=== PATIENT | male | born 1975 | race Caucasian/White ===

== ENCOUNTER 2020-06-29 00:54 | Emergency (ER) | payer OTHER ==
[2020-06-29 01:07] VITALS: TEMP 98.2
[2020-06-29] MEDS ORDERED: HYDROmorphone 1 MG/ML 1 ML SYRINGE IVP STA (01:10)
[2020-06-29] MEDS ORDERED: SODIUM CHLORIDE 0.9% 500 ML 500 ML IV STA (01:10)
[2020-06-29 01:35] LABS: Basophils # (A) 0.1 k/uL (0-0.2); Basophils % (A) 1 %; Eosinophils # (A) 0.1 k/uL (0-0.7); Eosinophils % (A) 1 %; HCT 33.8 % (39.0-53.0); HGB 10.8 gm/dL (13.0-17.5); Hypochromasia Moderate; Lymphocytes # (A) 1.7 k/uL (1.0-4.8); Lymphocytes % (A) 20 %; MCH 27.1 pg (25.0-35.0); MCHC 32.1 g/dL (31.0-37.0); MCV 84.6 fL (80.0-100.0); Mean Platelet Volume 7.5; Monocytes # (A) 1.1 k/uL (0-1.0); Monocytes % (A) 13 %; Neutrophils # (A) 5.4 k/uL (1.3-7.7); Neutrophils % (A) 62 %; Platelet Count 878 k/uL (150-450); Poikilocytosis Moderate; RDW 14.6 % (11.5-15.5); WBC 8.7 k/uL (3.8-10.6)
[2020-06-29 01:43] LABS: ALT 30 U/L (4-49); AST 29 U/L (17-59); African American GFR (CKD) >90 (>60 ml/min/1.73 sqM); Albumin 3.1 g/dL (3.5-5.0); Alkaline Phosphatase 55 U/L (38-126); Amylase <30 U/L (30-110); Anion Gap 8 mmol/L; Blood Urea Nitrogen 16 mg/dL (9-20); Calcium 9.2 mg/dL (8.4-10.2); Carbon Dioxide 27 mmol/L (22-30); Chloride 97 mmol/L (98-107); Glucose 125 mg/dL (74-99); Non-African American GFR(CKD) >90 (>60 ml/min/1.73 sqM); Potassium 4.5 mmol/L (3.5-5.1); Sodium 132 mmol/L (137-145); Total Bilirubin 0.3 mg/dL (0.2-1.3); Total Protein 5.6 g/dL (6.3-8.2)
[2020-06-29] MEDS ORDERED: LORazepam 2 MG/ML INJ IV STA ×2 (01:45→02:19)
--- NOTE | 2020-06-29 01:49 | ED ---
Abdominal Pain HPI - General Chief Complaint: Abdominal Pain Stated Complaint: Abdominal Pain Time Seen by Provider: 06/29/20 01:01 Source: patient, EMS Mode of arrival: EMS Limitations: no limitations - History of Present Illness Initial Comments: This patient is a 44-year-old man who presents to be evaluated for abdominal pain and vomiting. The patient relates that he had been admitted to [facility] on June 18 for abdominal pain, and that he was found to have duodenal ulcer with hemorrhage. The patient underwent Billroth II procedure and also had duodenostomy tube placement. The patient was discharged from the hospital approximately 12 hours ago. Patient is having nausea and abdominal pain and was not able take his own pain medication. MD Complaint: abdominal pain -: hour(s) Location: diffuse Radiation: none Severity: severe Quality: aching Consistency: constant Improves With: nothing Worsens With: nothing Associated Symptoms: nausea - Related Data Allergies Allergy/AdvReac Type Severity Reaction Status Date / Time No Known Allergies Allergy Verified 06/29/20 01:07 Review of Systems ROS Statement: Those systems with pertinent positive or pertinent negative responses have been documented in the HPI. ROS Other: All systems not noted in ROS Statement are negative. Constitutional: Denies: fever, chills Respiratory: Denies: cough, dyspnea Cardiovascular: Denies: chest pain, palpitations Gastrointestinal: Reports: abdominal pain, nausea. Denies: vomiting, diarrhea Genitourinary: Denies: dysuria, frequency, hematuria, testicular pain, testicular mass Musculoskeletal: Denies: back pain Skin: Denies: rash Neurological: Denies: headache, weakness, numbness Psychiatric: Reports: anxiety. Denies: depression, auditory hallucinations Past Medical History History of Any Multi-Drug Resistant Organisms: None Reported Additional Past Surgical History / Comment(s): double ulcer repair, hernia repair Past Psychological History: No Psychological Hx Reported Smoking Status: Current every day smoker Past Alcohol Use History: None Reported Past Drug Use History: Heroin General Exam Limitations: no limitations General appearance: alert, anxious Head exam: Present: atraumatic, normocephalic Eye exam: Present: normal appearance. Absent: scleral icterus, conjunctival injection ENT exam: Present: normal oropharynx Neck exam: Present: normal inspection Respiratory exam: Present: normal lung sounds bilaterally. Absent: respiratory distress, wheezes, rales, rhonchi, stridor Cardiovascular Exam: Present: regular rate, normal rhythm, normal heart sounds. Absent: systolic murmur, diastolic murmur, rubs, gallop GI/Abdominal exam: Present: soft, diminished bowel sounds, other (Patient has a midline abdominal incision with sutures that are intact. The incision is clean dry and intact without any abnormal erythema or discharge. There is also a draining tube consistent with the duodenostomy tube. Normal in appearance.). Absent: distended, tenderness, guarding, rebound, rigid, mass, pulsatile mass Extremities exam: Present: normal inspection, normal capillary refill. Absent: pedal edema, calf tenderness Back exam: Present: normal inspection. Absent: CVA tenderness (R), CVA tenderness (L) Neurological exam: Present: alert Skin exam: Present: warm, dry, intact, normal color. Absent: rash Course Vital Signs 06/29/20 00:57 Temperature 98.2 F Pulse Rate 103 H Respiratory 20 Rate Blood Pressure 139/104 O2 Sat by Pulse 99 Oximetry - Reevaluation(s) Reevaluation #1: 06/29/20 02:33 I discussed the case with Dr. Shepherd, who is covering surgical call [facility] and states that the patient best served by being seen by his surgeon back at [facility]. I discussed this with the patient and he does agree to transfer back receiving Hospital. I then phoned [facility], , and spoke with a Dr. Hernandez who accepted transfer of the patient back to their emergency department. Medical Decision Making - Medical Decision Making This patient is a 44-year-old man who presents with abdominal pain and nausea. He also has had vomiting here. The patient recently had Billroth II procedure for bleeding duodenal ulcer. Given the patient's degree of pain he is sent for CAT scan which does reveal bowel obstruction. I discussed the case with Dr. Shepherd, who is covering for surgery [facility] and recommends that the patient have decompression with nasogastric tube and also transfer back to have further care by his primary surgeon. - Lab Data Result diagrams: 06/29/20 01:18 06/29/20 01:18 Lab Results 06/29/20 06/29/20 Range/Units 01:18 01:18 WBC 8.7 (3.8-10.6) k/uL RBC 4.00 L (4.30-5.90) m/uL Hgb 10.8 L (13.0-17.5) gm/dL Hct 33.8 L (39.0-53.0) % MCV 84.6 (80.0-100.0) fL MCH 27.1 (25.0-35.0) pg MCHC 32.1 (31.0-37.0) g/dL RDW 14.6 (11.5-15.5) % Plt Count 878 H (150-450) k/uL Neutrophils % 62 % Lymphocytes % 20 % Monocytes % 13 % Eosinophils % 1 % Basophils % 1 % Neutrophils # 5.4 (1.3-7.7) k/uL Lymphocytes # 1.7 (1.0-4.8) k/uL Monocytes # 1.1 H (0-1.0) k/uL Eosinophils # 0.1 (0-0.7) k/uL Basophils # 0.1 (0-0.2) k/uL Hypochromasia Moderate Poikilocytosis Moderate Sodium 132 L (137-145) mmol/L Potassium 4.5 (3.5-5.1) mmol/L Chloride 97 L (98-107) mmol/L Carbon Dioxide 27 (22-30) mmol/L Anion Gap 8 mmol/L BUN 16 (9-20) mg/dL Creatinine 0.76 (0.66-1.25) mg/dL Est GFR (CKD-EPI)AfAm >90 (>60 ml/min/1.73 sqM) Est GFR (CKD-EPI)NonAf >90 (>60 ml/min/1.73 sqM) Glucose 125 H (74-99) mg/dL Calcium 9.2 (8.4-10.2) mg/dL Total Bilirubin 0.3 (0.2-1.3) mg/dL AST 29 (17-59) U/L ALT 30 (4-49) U/L Alkaline Phosphatase 55 (38-126) U/L Total Protein 5.6 L (6.3-8.2) g/dL Albumin 3.1 L (3.5-5.0) g/dL Amylase <30 L (30-110) U/L Lipase 68 (23-300) U/L Critical Care Time Critical Care Time: Yes (35 minutes) Disposition Clinical Impression: Abdominal pain, Small bowel obstruction Disposition: OTHER INSTITUTION NOT DEFINED Condition: Serious Is patient prescribed a controlled substance at d/c from ED?: No Referrals: None,Stated [Primary Care Provider] - 1-2 days - Out of Hospital Transfer - Req. Specs Out of Hospital Transfer - Requested Specifics: Other Emergency Center
--- NOTE | 2020-06-29 01:58 | CT ---
EXAMINATION TYPE: CT abdomen pelvis wo con DATE OF EXAM: 06/29/2020 COMPARISON: None HISTORY: Abd Pain CT DLP: 556.90 mGycm Automated exposure control for dose reduction was used. Images obtained from the diaphragm to the floor the pelvis with no contrast. Lung bases are clear. There is no pleural effusion. Heart size is normal. There is no pericardial eff usion. Liver and gallbladder appear normal. Bile ducts are not dilated. There is apparent percutaneous bilia ry catheter with T-tube. There is dilated fluid-filled stomach. There are multiple dilated loops of s mall bowel in the mid abdomen. There are multiple fluid levels. Small bowel measures up to 5.5 cm. I see no sign of free air. There is no ascites. Large bowel is mostly empty. Distal small bowel is not dilated. Transition point not identified. Kidneys have normal size. There is no hydronephrosis. There is no evidence of a renal calculus. There is no retroperitoneal adenopathy. There is no inguinal hernia. Bladder distends smoothly. There is m ild free fluid in the pelvis. The bile ducts do not appear dilated. There are skin laura in the mid line abdomen. Lumbar spine is intact. There is no compression fracture. Bony pelvis is intact. IMPRESSION: Markedly dilated mid and proximal small bowel consistent with high-grade mechanical obstruction. Smal l amount of free fluid in the pelvis. No free fluid in the right upper quadrant. T-tube in the right upper quadrant apparently in the common bile duct. No dilated ducts.
[2020-06-29] MEDS ORDERED: ONDANSETRON 4 MG/2 ML VIAL IVP STA (02:14)
[2020-06-29 03:03] VITALS: BP 143/98; PULSE 100; RESP 18
== END 2020-06-29 02:58 | disposition other institution (70) ==
LOC: EC 00:54
DX: K56.609 Unspecified intestinal obstruction, unspecified as to partial versus complete obstruction (principal); F17.200 Nicotine dependence, unspecified, uncomplicated; Z87.19 Personal history of other diseases of the digestive system; Z93.4 Other artificial openings of gastrointestinal tract status; Z90.3 Acquired absence of stomach [part of]
CPT/HCPCS: 36415; 80053; 82150; 83690; 85025; 74176; 99291; 96374; 96375 ×2; 96376; J2060; J2405; J1170

== ENCOUNTER 2020-07-07 11:42 | Emergency (ER) | payer OTHER ==
[2020-07-07 11:49] VITALS: TEMP 97
[2020-07-07] MEDS ORDERED: SODIUM CHLORIDE 0.9% 1,000 ML IV STA (11:58)
[2020-07-07] MEDS ORDERED: HYDROmorphone 1 MG/ML 1 ML SYRINGE IVP STA (11:59)
[2020-07-07] MEDS ORDERED: ONDANSETRON 4 MG/2 ML VIAL IVP STA (11:59)
--- NOTE | 2020-07-07 12:04 | ED ---
Recheck HPI - General Source: patient, EMS, RN notes reviewed, old records reviewed Mode of arrival: EMS Limitations: no limitations <Brenda Jean - Last Filed: 07/07/20 14:11> <Vipin Valdivia - Last Filed: 07/07/20 16:16> - General Chief Complaint: Recheck/Abnormal Lab/Rx Stated Complaint: Post-Op Complications Time Seen by Provider: 07/07/20 11:46 - History of Present Illness Initial Comments: Srinivas is a 44-year-old male with recent history of gastric ulcer repair at [facility] in the beginning of June. Patient reports that he left his initial stay at [facility] he left AMA. He came to our emergency department on June 29 and was found to have a bowel obstruction and was transferred back to [facility]. Patient had a alexander lroth 2 procedure and had duodenostomy tube placed. 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 He was receiving IV dilaudid and reports that after leaving AMA he has had no pain medication. He states that he has not has any concern at this time for bowel obstruction as he did have a bowel movement this morning, he denies dark or tarry stool. He states he is having severe pain and is also going through withdrawals. He denies any recent fevers. Denies any vomiting. He does have an abdominal drain. (Brenda Jean) - Related Data Home Medications Medication Instructions Recorded Confirmed Amoxicillin 500 mg PO BID 07/07/20 07/07/20 Clarithromycin [Biaxin] 500 mg PO Q12H 07/07/20 07/07/20 Pantoprazole [Protonix] 40 mg PO BID 07/07/20 07/07/20 oxyCODONE HCL [Roxicodone] 15 mg PO Q6H PRN 07/07/20 07/07/20 Allergies Allergy/AdvReac Type Severity Reaction Status Date / Time No Known Allergies Allergy Verified 07/07/20 14:08 Review of Systems ROS Other: All systems not noted in ROS Statement are negative. <Brenda Jean - Last Filed: 07/07/20 14:11> ROS Other: All systems not noted in ROS Statement are negative. <Vipin Valdivia - Last Filed: 07/07/20 16:16> ROS Statement: Those systems with pertinent positive or pertinent negative responses have been documented in the HPI. Past Medical History Past Medical History: No Reported History History of Any Multi-Drug Resistant Organisms: None Reported Additional Past Surgical History / Comment(s): double ulcer repair, hernia repair Past Psychological History: No Psychological Hx Reported Smoking Status: Current every day smoker Past Alcohol Use History: None Reported Past Drug Use History: Heroin <Brenda Jean - Last Filed: 07/07/20 14:11> General Exam Limitations: no limitations General appearance: alert, in no apparent distress Head exam: Present: atraumatic, normocephalic, normal inspection Eye exam: Present: normal appearance, PERRL, EOMI. Absent: scleral icterus, conjunctival injection, periorbital swelling ENT exam: Present: normal exam, mucous membranes moist Neck exam: Present: normal inspection. Absent: tenderness, meningismus, lymphadenopathy Respiratory exam: Present: normal lung sounds bilaterally. Absent: respiratory distress, wheezes, rales, rhonchi, stridor Cardiovascular Exam: Present: regular rate, normal rhythm, normal heart sounds. Absent: systolic murmur, diastolic murmur, rubs, gallop, clicks GI/Abdominal exam: Present: soft, tenderness, normal bowel sounds, other (well appearing midline incision site. Indwelling biliary drain, with bile in Jpouch. ). Absent: distended, guarding, rebound, rigid Extremities exam: Present: normal inspection, full ROM, normal capillary refill. Absent: tenderness, pedal edema, joint swelling, calf tenderness Neurological exam: Present: alert, oriented X3, CN II-XII intact Psychiatric exam: Present: normal affect, normal mood Skin exam: Present: warm, dry, intact, normal color. Absent: rash <Brenda Jean - Last Filed: 07/07/20 14:11> - General Exam Comments Initial Comments: 44 year old male, moderate discomfort. (Brenda Jean) Course <Brenda Jean - Last Filed: 07/07/20 14:11> <Vipin Valdivia - Last Filed: 07/07/20 16:16> Vital Signs 07/07/20 07/07/20 11:44 13:13 Temperature 97 F L Pulse Rate 99 96 Respiratory 18 18 Rate Blood Pressure 117/78 124/88 O2 Sat by Pulse 99 98 Oximetry - Reevaluation(s) Reevaluation #1: 07/07/20 14:04 Asians still continued complaining of pain and anxiety. Does exhibit drug- seeking behaviors asking about specific dose of medication. (Brenda Jean) 07/07/20 15:24 Patient earlier reexamined and reevaluated by myself, Dr. Valdivia. Patient states he does have abdominal discomfort however that he states has been persistent since surgery, no worse. Abdomen soft with mild tenderness, more upper abdomen. Patient is requesting discharge. Patient does want to go to a rehab facility. We are attempting to get a hold of [facility] receiving surgery, we are currently paging second time. 07/07/20 16:03 Case was discussed with Dr. Cosme who will contact team that has previously taking care of this patient and call back. 07/07/20 16:13 Case again discussed with Dr. Cosme who states recent hemoglobin was 9.1 so there was not significant drop. She had no further recommendations other than patient following up with Dr. Almanzar. (Vipin Valdivia) Medical Decision Making - Lab Data Result diagrams: 07/07/20 12:09 07/07/20 12:09 - Radiology Data Radiology results: report reviewed <Brenda Jean - Last Filed: 07/07/20 14:11> - Lab Data Result diagrams: 07/07/20 12:09 07/07/20 12:09 - Radiology Data Radiology results: report reviewed (Computed tomography scan abdomen pelvis shows some mild small bowel wall thickening and dilation consistent with ileus or enteritis. Improved compared with old exam. ET tube in good position. No fluid to suggest a leak. Mild free fluid in pelvis improved compared to old exam.), image reviewed (KUB shows nonobstructive pattern.) <Vipin Valdivia - Last Filed: 07/07/20 16:16> - Medical Decision Making 44-year-old male presents response today approximately 3 weeks post biliroth [address] procedure[address] His surgeon is Dr. Vickers. He left AMA yesterday from [facility] hospital after a bowel obstruction diagnosis on 06/29. He states he left to go to a rehab facility for heroin withdrawal. Patient states he is here for concern for withdrawal from pain medication. Patient denies fevers. Pt case transferred to Dr. Valdivia, 2:13pm. (Brenda Jean) - Lab Data Lab Results 07/07/20 07/07/20 07/07/20 Range/Units 12:09 12:09 12:09 WBC 11.2 H (3.8-10.6) k/uL RBC 3.38 L (4.30-5.90) m/uL Hgb 8.7 L D (13.0-17.5) gm/dL Hct 28.2 L (39.0-53.0) % MCV 83.5 (80.0-100.0) fL MCH 25.7 (25.0-35.0) pg MCHC 30.7 L (31.0-37.0) g/dL RDW 15.6 H (11.5-15.5) % Plt Count 694 H (150-450) k/uL Neutrophils % 68 % Lymphocytes % 23 % Monocytes % 5 % Eosinophils % 2 % Basophils % 0 % Neutrophils # 7.7 (1.3-7.7) k/uL Lymphocytes # 2.5 (1.0-4.8) k/uL Monocytes # 0.6 (0-1.0) k/uL Eosinophils # 0.3 (0-0.7) k/uL Basophils # 0.0 (0-0.2) k/uL Hypochromasia Marked Poikilocytosis Marked PT 13.3 H (9.0-12.0) sec INR 1.3 H (<1.2) APTT 29.8 (22.0-30.0) sec Sodium 135 L (137-145) mmol/L Potassium 3.8 (3.5-5.1) mmol/L Chloride 103 (98-107) mmol/L Carbon Dioxide 25 (22-30) mmol/L Anion Gap 7 mmol/L BUN 10 (9-20) mg/dL Creatinine 0.79 (0.66-1.25) mg/dL Est GFR (CKD-EPI)AfAm >90 (>60 ml/min/1.73 sqM) Est GFR (CKD-EPI)NonAf >90 (>60 ml/min/1.73 sqM) Glucose 92 (74-99) mg/dL Calcium 8.2 L (8.4-10.2) mg/dL Total Bilirubin 0.2 (0.2-1.3) mg/dL AST 24 (17-59) U/L ALT 16 (4-49) U/L Alkaline Phosphatase 56 (38-126) U/L Total Protein 5.0 L (6.3-8.2) g/dL Albumin 2.5 L (3.5-5.0) g/dL Amylase <30 L (30-110) U/L Lipase 355 H (23-300) U/L Urine Color Urine Appearance (Clear) Urine pH (5.0-8.0) Ur Specific [place] (1.001-1.035) Urine Protein (Negative) Urine Glucose (UA) (Negative) Urine Ketones (Negative) Urine Blood (Negative) Urine Nitrite (Negative) Urine Bilirubin (Negative) Urine Urobilinogen (<2.0) mg/dL Ur Leukocyte Esterase (Negative) Urine WBC (0-5) /hpf 07/07/20 Range/Units 12:10 WBC (3.8-10.6) k/uL RBC (4.30-5.90) m/uL Hgb (13.0-17.5) gm/dL Hct (39.0-53.0) % MCV (80.0-100.0) fL MCH (25.0-35.0) pg MCHC (31.0-37.0) g/dL RDW (11.5-15.5) % Plt Count (150-450) k/uL Neutrophils % % Lymphocytes % % Monocytes % % Eosinophils % % Basophils % % Neutrophils # (1.3-7.7) k/uL Lymphocytes # (1.0-4.8) k/uL Monocytes # (0-1.0) k/uL Eosinophils # (0-0.7) k/uL Basophils # (0-0.2) k/uL Hypochromasia Poikilocytosis PT (9.0-12.0) sec INR (<1.2) APTT (22.0-30.0) sec Sodium (137-145) mmol/L Potassium (3.5-5.1) mmol/L Chloride (98-107) mmol/L Carbon Dioxide (22-30) mmol/L Anion Gap mmol/L BUN (9-20) mg/dL Creatinine (0.66-1.25) mg/dL Est GFR (CKD-EPI)AfAm (>60 ml/min/1.73 sqM) Est GFR (CKD-EPI)NonAf (>60 ml/min/1.73 sqM) Glucose (74-99) mg/dL Calcium (8.4-10.2) mg/dL Total Bilirubin (0.2-1.3) mg/dL AST (17-59) U/L ALT (4-49) U/L Alkaline Phosphatase (38-126) U/L Total Protein (6.3-8.2) g/dL Albumin (3.5-5.0) g/dL Amylase (30-110) U/L Lipase (23-300) U/L Urine Color Light Yellow Urine Appearance Clear (Clear) Urine pH 6.0 (5.0-8.0) Ur Specific [place] 1.008 (1.001-1.035) Urine Protein Negative (Negative) Urine Glucose (UA) Negative (Negative) Urine Ketones Negative (Negative) Urine Blood Negative (Negative) Urine Nitrite Negative (Negative) Urine Bilirubin Negative (Negative) Urine Urobilinogen <2.0 (<2.0) mg/dL Ur Leukocyte Esterase Negative (Negative) Urine WBC 1 (0-5) /hpf - Radiology Data KUB shows nonobstructive bowel gas pattern. (Brenda Jean) Disposition <Brenda Jean - Last Filed: 07/07/20 14:11> Is patient prescribed a controlled substance at d/c from ED?: No Time of Disposition: 16:15 <Vipin Valdivia - Last Filed: 07/07/20 16:16> Clinical Impression: Abdominal pain Disposition: HOME SELF-CARE Condition: Stable Instructions (If sedation given, give patient instructions): Abdominal Pain (ED) Additional Instructions: Please follow-up with Dr. Almanzar from [facility] in the next day or 2, call tomorrow. Return for increase in pain, vomiting, fevers, worsening or changing symptoms or any other concerns. Please also follow-up to primary care physician in the next day or 2. Referrals: Terri Meng MD [REFERRING] - 1-2 days
[2020-07-07 12:37] LABS: Basophils % (A) 0 %; Eosinophils # (A) 0.3 k/uL (0-0.7); Eosinophils % (A) 2 %; HCT 28.2 % (39.0-53.0); Hypochromasia Marked; Lymphocytes # (A) 2.5 k/uL (1.0-4.8); Lymphocytes % (A) 23 %; MCH 25.7 pg (25.0-35.0); MCHC 30.7 g/dL (31.0-37.0); MCV 83.5 fL (80.0-100.0); Mean Platelet Volume 7.3; Monocytes # (A) 0.6 k/uL (0-1.0); Monocytes % (A) 5 %; Neutrophils # (A) 7.7 k/uL (1.3-7.7); Neutrophils % (A) 68 %; Platelet Count 694 k/uL (150-450); Poikilocytosis Marked; RBC 3.38 m/uL (4.30-5.90); RDW 15.6 % (11.5-15.5); WBC 11.2 k/uL (3.8-10.6)
[2020-07-07 12:40] LABS: ALT 16 U/L (4-49); AST 24 U/L (17-59); African American GFR (CKD) >90 (>60 ml/min/1.73 sqM); Albumin 2.5 g/dL (3.5-5.0); Alkaline Phosphatase 56 U/L (38-126); Amylase <30 U/L (30-110); Anion Gap 7 mmol/L; Blood Urea Nitrogen 10 mg/dL (9-20); Calcium 8.2 mg/dL (8.4-10.2); Carbon Dioxide 25 mmol/L (22-30); Chloride 103 mmol/L (98-107); Glucose 92 mg/dL (74-99); Non-African American GFR(CKD) >90 (>60 ml/min/1.73 sqM); Potassium 3.8 mmol/L (3.5-5.1); Sodium 135 mmol/L (137-145); Total Bilirubin 0.2 mg/dL (0.2-1.3)
[2020-07-07 12:42] LABS: HGB 8.7 gm/dL (13.0-17.5)
[2020-07-07 12:48] LABS: INR 1.3 (<1.2); Partial Thromboplastin Time 29.8 sec (22.0-30.0); Prothrombin Time 13.3 sec (9.0-12.0)
[2020-07-07] MEDS ORDERED: LORazepam 2 MG/ML INJ IV STA (13:03)
--- NOTE | 2020-07-07 13:04 | XR ---
EXAMINATION TYPE: XR KUB DATE OF EXAM: 07/07/2020 COMPARISON: NONE HISTORY: Pain TECHNIQUE: Single supine KUB image of the abdomen is obtained FINDINGS: Small bowel demonstrates no evidence for dilatation or air fluid levels. Gas and fecal material is seen in non-distended colon. No convincing evidence for pneumoperitoneum. Catheter device overlies the right upper quadrant. No unusual calcifications. The lung bases are clear. The osseous structures are intact. IMPRESSION: 1. Overall nonobstructive bowel gas pattern.
[2020-07-07 13:12] LABS: WBC,Urine 1 /hpf (0-5)
[2020-07-07 13:28] LABS: Appearance,Urine Clear (Clear); Bilirubin,Urine Negative (Negative); Blood,Urine Negative (Negative); Color,Urine Light Yellow; Glucose,Urine (UA) Negative (Negative); Ketones,Urine Negative (Negative); Leukocyte Esterase,Urine Negative (Negative); Nitrite,Urine Negative (Negative); Protein,Urine Negative (Negative); Specific Gravity,Urine 1.008 (1.001-1.035); Urobilinogen,Urine <2.0 mg/dL (<2.0)
[2020-07-07] MEDS ORDERED: SODIUM CHLORIDE 0.9% 1,000 ML IV ONE (13:34)
--- NOTE | 2020-07-07 14:21 | CT ---
EXAMINATION TYPE: CT abdomen pelvis w con DATE OF EXAM: 07/07/2020 COMPARISON: 06/29/2020 HISTORY: Post op pain, complications CT DLP: 602.5 mGycm Automated exposure control for dose reduction was used. CONTRAST: Performed with IV Contrast, patient injected with 100 ml mL of Isovue 300. Images obtained from the diaphragm to the floor the pelvis with IV contrast. FINDINGS: There is some mild interstitial infiltrate and atelectasis left posterior lung base. Heart appears no rmal. There is no pleural effusion. There are clips at the gastroesophageal junction. Stomach is inta ct. Spleen is intact. There is no pancreatic mass. There is T-tube in the common bile duct. The bile ducts are not dilated. There is no adrenal mass. Kidneys show satisfactory contrast opacification. Th ere is no hydronephrosis. Delayed images show normal excretion. There is no retroperitoneal adenopath y. Ureters are not dilated. Bladder distends smoothly. There is no inguinal hernia. There are few dis tended loops of small bowel in the mid abdomen that measure up to 3.2 cm. There is mild small bowel w all thickening. There is no ascites. There is no mesenteric edema. There is small amount of free fluid in the pelvis. Lumbar vertebra have normal alignment. Disc spaces are fairly normal. There is no compression fractu re. Bony pelvis is intact. Hip joints appear normal. IMPRESSION: There is some mild small bowel wall thickening and mild dilation consistent with ileus and mild enter itis. There is improvement compared to old exam with significant decreased in the dilation of the sma ll bowel. T-tube in good position. No fluid around the right upper quadrant to suggest a bile leak. Mild free f luid in the pelvis is improved compared to old exam.
[2020-07-07] MEDS ORDERED: LORazepam 1 MG TAB PO STA (16:19)
[2020-07-07 16:24] VITALS: BP 125/96; PULSE 97; RESP 16
== END 2020-07-07 16:30 | disposition home or self-care (01) ==
LOC: EC 11:42
DX: G89.18 Other acute postprocedural pain (principal); R10.9 Unspecified abdominal pain; K25.9 Gastric ulcer, unspecified as acute or chronic, without hemorrhage or perforation; F17.200 Nicotine dependence, unspecified, uncomplicated; Z90.3 Acquired absence of stomach [part of]; Z93.4 Other artificial openings of gastrointestinal tract status; Z79.899 Other long term (current) drug therapy
CPT/HCPCS: 36415; 80053; 82150; 83690; 85025; 85610; 85730; 81003; 74018; 74177; 99284; 96374; 96375 ×2; 96361 ×2; J2060; J2405; J1170; Q9967

== ENCOUNTER 2020-07-08 14:56 | Emergency (ER) | payer OTHER ==
--- NOTE | 2020-07-08 15:06 | ED ---
General Adult HPI - General Chief complaint: Abdominal Pain Stated complaint: detox Time Seen by Provider: 07/08/20 15:05 Source: patient, EMS Mode of arrival: EMS Limitations: no limitations - History of Present Illness Initial comments: Patient presents the ED by ambulance complaining of having continued abdominal pain at the site of a surgical drain. Patient also states that he has been having heroin withdrawal symptoms, and he states that in particular, he has felt very anxious. Patient was seen in the ED for these symptoms yesterday (please see note from yesterday's visit), and he had lab work and CT imaging done during his visit yesterday. Patient reportedly left AMA from the [facility] 2 days ago after having a Billroth II procedure performed there. Patient states that his pain continues, and so he has returned to the ED. Patient is requesting narcotic pain medication and medication for his anxiety. Patient denies trauma or injury, fever or chills, headache, chest pain, dyspnea, cough or cold symptoms, dizziness, neck pain, nausea or vomiting, diarrhea or constipation, bloody or melanotic stool, dysuria/hematuria/urinary frequency/urinary symptoms, or any other symptoms or complaints. - Related Data Home Medications Medication Instructions Recorded Confirmed Amoxicillin 500 mg PO BID 07/07/20 07/07/20 Clarithromycin [Biaxin] 500 mg PO Q12H 07/07/20 07/07/20 Pantoprazole [Protonix] 40 mg PO BID 07/07/20 07/07/20 oxyCODONE HCL [Roxicodone] 15 mg PO Q6H PRN 07/07/20 07/07/20 Allergies Allergy/AdvReac Type Severity Reaction Status Date / Time No Known Allergies Allergy Verified 07/07/20 14:08 Review of Systems ROS Statement: Those systems with pertinent positive or pertinent negative responses have been documented in the HPI. ROS Other: All systems not noted in ROS Statement are negative. Past Medical History Past Medical History: No Reported History History of Any Multi-Drug Resistant Organisms: None Reported Additional Past Surgical History / Comment(s): double ulcer repair, hernia repair Past Psychological History: No Psychological Hx Reported Smoking Status: Current every day smoker Past Alcohol Use History: None Reported Past Drug Use History: Heroin General Exam Limitations: no limitations General appearance: alert, in no apparent distress Head exam: Present: atraumatic, normocephalic Eye exam: Present: normal appearance, EOMI ENT exam: Present: mucous membranes moist Neck exam: Present: other (Trachea is in midline) Respiratory exam: Present: normal lung sounds bilaterally. Absent: respiratory distress, wheezes, rales, rhonchi Cardiovascular Exam: Present: regular rate, normal rhythm, normal heart sounds, other (Normal radial pulses bilaterally) GI/Abdominal exam: Present: soft, diminished bowel sounds, other (Moderate generalized abdominal pain, surgical drain site does not have any surrounding erythema or evidence of infection). Absent: distended, guarding, rebound Extremities exam: Absent: tenderness, pedal edema, calf tenderness Back exam: Absent: CVA tenderness (R), CVA tenderness (L) Neurological exam: Present: alert, oriented X3. Absent: motor sensory deficit Psychiatric exam: Present: normal affect, normal mood Skin exam: Present: warm, dry, normal color Course Vital Signs 07/08/20 15:01 Temperature 98.5 F Pulse Rate 95 Respiratory 18 Rate Blood Pressure 134/97 O2 Sat by Pulse 98 Oximetry Medical Decision Making - Medical Decision Making Patient is afebrile and with normal vital signs. Patient has a nonsurgical abdominal exam. After being told that I would not prescribe him opiate pain medication without having a reason to do so, the patient decided that he wanted to leave AMA. Patient refused ED testing. Patient is A and O 4 at this time and completely coherent. I explained the risks of leaving AMA, including further morbidity and even in the worse case situation. Patient is able to verbalize understanding of these risks, and he states that he still wishes to leave AMA at this time. Patient was instructed to return to the ED should he change his mind or should he develop new or worsening symptoms. Patient was also instructed to follow up closely with his surgeon at the [facility], as well as his primary care provider. Patient was counseled about abdominal pain and opiate withdrawal. Patient was clearly explained return and follow-up instructions, and he feels comfortable with this plan. Disposition Clinical Impression: Abdominal pain, Opiate withdrawal Disposition: Left Against Medical Advice Condition: Stable Instructions (If sedation given, give patient instructions): Abdominal Pain (ED), Opioid Withdrawal (ED) Additional Instructions: Return to the ER immediately if you change your mind, or if you develop new or worsening symptoms. Follow up with your surgeon at the [facility] and your primary care provider as soon as possible. Is patient prescribed a controlled substance at d/c from ED?: No Referrals: None,Stated [Primary Care Provider] - 1-2 days Terri Meng MD [REFERRING] - 1-2 days Time of Disposition: 15:23
[2020-07-08 15:07] VITALS: BP 134/97; PULSE 95; RESP 18; TEMP 98.5
[2020-07-08] MEDS ORDERED: SODIUM CHLORIDE 0.9% 500 ML 500 ML IV STA (15:11)
[2020-07-08] MEDS ORDERED: cloNIDine HCL 0.1 MG TAB PO STA (15:12)
== END 2020-07-08 15:29 | disposition left against medical advice (07) ==
LOC: EC 14:56
DX: R10.9 Unspecified abdominal pain (principal); F11.23 Opioid dependence with withdrawal; F17.200 Nicotine dependence, unspecified, uncomplicated; Z53.29 Procedure and treatment not carried out because of patient's decision for other reasons; Z98.890 Other specified postprocedural states
CPT/HCPCS: 99284